=== PATIENT | female | born 1935 | race Caucasian/White ===

== ENCOUNTER → 2017-01-11 13:37 | Outpatient (CLI) | payer MEDICARE ==
[2015-06-30 16:27] VITALS: BMI 24.5
[~2017-01-11 13:37] MED LIST: ALDACTONE25 MG PO; BAYER CHEWABLE81 MG PO; BUMETANIDE0.5 MG PO; CATAPRES0.1 MG PO; COZAAR50 MG PO; HYTRIN10 MG PO; KLOR-CON 1010 MEQ PO; METFORMIN HCL500 M1 PO; NORVASC5 MG PO; OCUVITE TABLET1 TA1 PO; PRAVACHOL40 MG PO; XANAX0.5 MG PO
== END | disposition home or self-care (01) ==
LOC: D.CT 13:37 → D.US 15:00
DX: G45.9 Transient cerebral ischemic attack, unspecified (principal); R09.89 Other specified symptoms and signs involving the circulatory and respiratory systems

== ENCOUNTER → 2018-03-17 15:15 | Outpatient (CLI) | payer MEDICARE ==
[2015-06-30 16:27] VITALS: BMI 24.5
== END | disposition home or self-care (01) ==
LOC: D.CT 15:15
DX: M65.4 Radial styloid tenosynovitis [de Quervain] (principal)

== ENCOUNTER 2018-04-21 06:50 | Day surgery (SDC) | payer MEDICARE ==
[2018-04-19 14:04] LABS: BASOPHILS 0.5 % (0-2); EOSINOPHILS 3.9 % (0-7); HEMATOCRIT 34.7 % (36.0-48.0); HEMOGLOBIN 11.5 g/dL (12-16); IMMATURE GRANULOCYTES 0.2 % (0-5); MCH 31.5 pg (26.0-34.0); MCHC 33.1 g/dL (31.0-37.0); MCV 95.1 fL (80.0-100.0); MEAN PLATELET VOLUME 10.3 fL (7.4-10.4); MONOCYTES 8.7 % (2-11); NEUTROPHILS 53.7 % (40-80); RBC 3.65 10x6/uL (4.00-5.40); RDW 12.6 % (11.5-14.5); WBC 6.4 10x3/uL (4.8-10.8)
[2018-04-19 14:11] LABS: PLATELET COUNT 319 10x3/uL (130-400)
[2018-04-19 14:15] LABS: CALCIUM 9.4 mg/dL (8.5-10.1); CARBON DIOXIDE 29.4 mmol/L (21.0-32.0); CREATININE - SERUM 1.1 mg/dL (0.6-1.3); POTASSIUM - SERUM 4.4 mmol/L (3.5-5.1)
[~2018-04-21] VITALS: Ht 160 cm; Wt 55.8 kg
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
[2018-04-21 07:52] VITALS: BP 133/49; Ht 160 cm; Wt 55.8 kg
[2018-04-21] MEDS ORDERED: HYDROCODON-ACE1 EAC7 PO (11:06)
== END 2018-04-21 12:45 | disposition home or self-care (01) ==
LOC: D.OPS 06:50 → D.PAN 11:00 → D.OPS 11:00
PROVIDERS: Anesthesiology
DX: M65.4 Radial styloid tenosynovitis [de Quervain] (principal); Z01.812 Encounter for preprocedural laboratory examination